=== PATIENT | female | born 1980 | race Caucasian/White ===

== ENCOUNTER 2019-10-05 13:11 | Emergency (ER) | payer BC ==
--- NOTE | 2019-10-05 14:13 | EDM.PDOC ---
ED HPI GENERAL MEDICAL PROBLEM - General Chief Complaint: Respiratory Problem Stated Complaint: FEVER/COUGHING Time Seen by Provider: 10/05/19 14:00 Source of Information: Reports: Patient History Limitations: Reports: No Limitations - History of Present Illness INITIAL COMMENTS - FREE TEXT/NARRATIVE: HISTORY AND PHYSICAL: History of present illness: Patient is a 39-year-old female who presents to the ED today with concern of intermittent fevers and cough over the last 4 to 5 days. Patient states that she has not been exposed to COVID-19 that she is aware of and has not traveled. Patient states that she has been at home and at work and does not live in a congregate setting. Patient states she also initially had some generalized body aches and diarrhea but this has improved over the last several days. Patient denies any health history or any other symptoms or concerns. Patient states she has not taken any medication today for her fever. Patient denies chest pain, shortness of breath. Denies headache, neck stiff ness , change in vision, syncope, or near syncope. Denies nausea, vomiting, abdominal pain, diarrhea, constipation, or dysuria. Has not noted any blood in urine or stool. Patient has been eating and drinking appropriately. Review of systems: As per history of present illness and below otherwise all systems reviewed and negative. Past medical history: As per history of present illness and as reviewed below otherwise noncontributory. Surgical history: As per history of present illness and as reviewed below otherwise noncontributory. Social history: See social history for further information Family history: As per history of present illness and as reviewed below otherwise noncontributory. Physical exam: General: Patient is alert, oriented, and in no acute distress. Patient sitting comfortably on exam table. HEENT: Atraumatic, normocephalic, pupils equal and reactive bilaterally, negative for conjunctival pallor or scleral icterus, mucous membranes moist, TMs normal bilaterally, throat clear, neck supple, nontender, trachea midline. No drooling or trismus noted. No meningeal signs. No hot potato voice noted. Lungs: Clear to auscultation, breath sounds equal bilaterally, chest nontender. Heart: S1S2, regular rate and rhythm without overt murmur Abdomen: Soft, nondistended, nontender. Negative for masses or hepatosplenomegaly. Negative for costovertebral tenderness. Pelvis: Stable nontender. Genitourinary: Deferred. Rectal: Deferred. Skin: Intact, warm, dry. No lesions or rashes noted. Extremities: Atraumatic, negative for cords or calf pain. Neurovascular unremarkable. Neuro: Awake, alert, oriented. Cranial nerves II through XII unremarkable. Cerebellum unremarkable. Motor and sensory unremarkable throughout. Exam nonfocal. Notes: Due to the current COVID-19 outbreak, there is limitation in the supplies needed to test for this. The supplies for the COVID-19 outbreak are the same for testing for influenza and therefore are reserving influenza testing for special cases. Being that patient's vitals are stable and reviewed by me and patient symptoms have been ongoing for 4 to 5 days and out of the window for treatment with Tamiflu, will not perform any testing at this time. Did instruct patient to stay home per the [facility] recommendations and return instructions provided. Voices understanding and is agreeable to plan of care. Denies any further questions or concerns at this time. Diagnostics: None Therapeutics: None Prescription: None Impression: Flu like symptoms Plan: 1. Stay at home until 72 hours (3 days) have passed since recovery (resolution of fever without medication use, and improvement of cough). 2. You can alternate ibuprofen and Tylenol as directed for pain and discomfort. 3. Follow-up with a primary care provider as discussed. Return to the ED as needed and as discussed. Definitive disposition and diagnosis as appropriate pending reevaluation and review of above. - Related Data Allergies Allergy/AdvReac Type Severity Reaction Status Date / Time aloe Allergy Hives Verified 10/05/19 13:39 Home Meds: Home Meds . 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: Endometrial Ablation, , Other (See Below) Other ATHLETIC GEAR CUSTODIAN History: Gestational Hypertension; Pre-diabetic, some sort of Uterus repair surgery Endocrine/Metabolic History: Reports: Diabetes, Type II Immunologic History: Reports: Other (See Below) Other Immunologic History: herpes - Infectious Disease History Infectious Disease History: Reports: Chicken Pox - Past Surgical History Female Surgical History: Reports: Tubal Ligation, Other (See Below) Social & Family History - Family History Family Medical History: Noncontributory Respiratory: Reports: Asthma - Tobacco Use Smoking Status *Q: Current Every Day Smoker Years of Tobacco use: 25 Packs/Tins Daily: 1 - Caffeine Use Caffeine Use: Reports: Coffee, Energy Drinks, Soda, Tea - Recreational Drug Use Recreational Drug Use: No ED ROS GENERAL - Review of Systems Review Of Systems: Comprehensive ROS is negative, except as noted in HPI. ED EXAM, GENERAL - Physical Exam Exam: See Below (see dictation) Course - Vital Signs Last Recorded V/S: Last Vital Signs Temp 97.4 F 10/05/19 13:39 Pulse 94 10/05/19 13:39 Resp 16 10/05/19 13:39 BP 139/92 H 10/05/19 13:39 Pulse Ox 98 10/05/19 13:39 Departure - Departure Time of Disposition: 14:07 Disposition: Home, Self-Care 01 Clinical Impression: Flu-like symptoms - Discharge Information Referrals: PCP,None [Primary Care Provider] - Additional Instructions: The following information is given to patients seen in the emergency department who are being discharged to home. This information is to outline your options for follow-up care. We provide all patients seen in our emergency department with a follow-up referral. The need for follow-up, as well as the timing and circumstances, are variable depending upon the specifics of your emergency department visit. If you don't have a primary care physician on staff, we will provide you with a referral. We always advise you to contact your personal physician following an emergency department visit to inform them of the circumstance of the visit and for follow-up with them and/or the need for any referrals to a consulting specialist. The emergency department will also refer you to a specialist when appropriate. This referral assures that you have the opportunity for follow-up care with a specialist. All of these measure are taken in an effort to provide you with optimal care, which includes your follow-up. Under all circumstances we always encourage you to contact your private physician who remains a resource for coordinating your care. When calling for follow-up care, please make the office aware that this follow-up is from your recent emergency room visit. If for any reason you are refused follow-up, please contact the [facility] Emergency Department at and asked to speak to the emergency department charge nurse. [facility] [address] [place] [address] [facility] [address] [place] [id number] 1. Stay at home until 72 hours (3 days) have passed since recovery (resolution of fever without medication use, and improvement of cough). 2. You can alternate ibuprofen and Tylenol as directed for pain and discomfort. 3. Follow-up with a primary care provider as discussed. Return to the ED as needed and as discussed. Sepsis Event Note - Evaluation Sepsis Screening Result: No Definite Risk - Focused Exam Vital Signs: Vital Signs Temp Pulse Resp BP Pulse Ox 10/05/19 13:39 97.4 F 94 16 139/92 H 98 Date Exam was Performed: 10/05/19 Time Exam was Performed: 14:07
[2019-10-05 14:33] VITALS: BP 134/75; PULSE 95
== END 2019-10-05 14:37 | disposition home or self-care (01) ==
LOC: MW.ED 13:11
DX: R50.9 Fever, unspecified (principal); R05 Cough; F17.210 Nicotine dependence, cigarettes, uncomplicated; Z88.8 Allergy status to other drugs, medicaments and biological substances
CPT/HCPCS: 99283

== ENCOUNTER 2020-09-03 18:20 | Emergency (ER) | payer BC ==
--- NOTE | 2020-09-03 18:26 | EDM.PDOC ---
ED HPI GENERAL MEDICAL PROBLEM - General Chief Complaint: Genitourinary Problem Stated Complaint: STD TEST Time Seen by Provider: 09/03/20 18:21 Source of Information: Reports: Patient History Limitations: Reports: No Limitations - History of Present Illness INITIAL COMMENTS - FREE TEXT/NARRATIVE: HISTORY AND PHYSICAL: History of present illness: Patient is a 40-year-old female who presents to the emergency room with concerns of exposure to gonorrhea. She states she was informed by her significant other that he tested positive for gonorrhea and suggested she get tested/treated. She currently offers no complaints or concerns. Denies any vaginal discharge, bleeding or pelvic/low back pain. Patient denies any fever, chills, headache, change in vision, syncope or near syncope. Denies any chest pain, back pain, shortness of breath or cough. Denies any abdominal pain, nausea, vomiting, diarrhea, constipation or dysuria. Has not noted any blood in urine or stool. Patient has been eating and drinking appropriately. Review of systems: As per history of present illness and below otherwise all systems reviewed and negative. Past medical history: As per history of present illness and as reviewed below otherwise noncontributory. Surgical history: As per history of present illness and as reviewed below otherwise noncontributory. Social history: See social history for further information Family history: As per history of present illness and as reviewed below otherwise noncontributory. Physical exam: General: Well developed and well nourished. Alert and orientated x 3. Nontoxic in appearance and in no acute distress. Vital signs are stable and have been reviewed by me. Nursing notes were reviewed. HEENT: Atraumatic, normocephalic, pupils equal and reactive bilaterally, negative for conjunctival pallor or scleral icterus, mucous membranes moist, trachea midline. No drooling or trismus noted. No meningeal signs. No hot potato voice noted. Lungs: Clear to auscultation bilaterally. No wheezes, rales, or rhonchi. Chest nontender. Normal work of breathing, no accessory muscles used. Heart: S1S2, regular rate and rhythm without overt murmur, gallops, or rubs. No JVD. No peripheral edema Abdomen: Soft, nondistended, nontender. Normoactive bowel sounds. Negative for masses or costovertebral tenderness. Skin: Intact, warm, dry. No lesions or rashes noted. Hematologic: No petechiae or purpra. Mucosa appropriate color and normal nail bed color and refill. Extremities: Atraumatic, moves all extremities per self without difficulty or deficits. Neurovascular unremarkable. Neuro: Awake, alert, oriented. Cranial nerves II through XII unremarkable. Cerebellum unremarkable. Motor and sensory unremarkable throughout. Exam nonfocal. Psychiatric: Mood and affect are appropriate. Normal thought process. Answering questions appropriately. Notes: *This patient was seen and evaluated during the 2019 SARS-CoV-2 novel coronavirus pandemic period. Community viral transmission is ongoing at time of this encounter and the emergency department is operating under pandemic response procedures. I have talked with the patient about today's findings, in addition to providing specific details for plan of care. Reassessment at the time of disposition demonstrates that the patient is in no acute distress. The patient is stable for discharge, counseling was provided and we discussed in great detail signs and symptoms that would prompt them to return to the Emergency Department. Medication, follow up and supportive care measures were reviewed and discussed. Voices understanding and is agreeable to plan of care. Denies any further questions or concerns at this time. Diagnostics: UA, HCGU, David/Chlam Therapeutics: Rocephin Prescription: Doxycycline Impression: STD exposure Plan: 1. Please abstain from sexual intercourse until you have completed the 7 day course of antibiotic. Always use protection to minimized risk of STD exposure 2. Take the medications as directed. The gonorrhea and chlamydia tests are send out labs, therefore will not be available for 2-3 business days. 3. Please follow-up with your primary care provider in the next 1-2 days. [facility] does offer free STD testing, please follow-up with them for further STD testing needs. Return to the ED as needed and as discussed. Definitive disposition and diagnosis as appropriate pending reevaluation and review of above. - Related Data Allergies Allergy/AdvReac Type Severity Reaction Status Date / Time aloe Allergy Hives Verified 09/03/20 19:12 Home Meds: Home Meds . 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: Endometrial Ablation, , Other (See Below) Other BAG GRADER History: Gestational Hypertension; Pre-diabetic, some sort of Uterus repair surgery Endocrine/Metabolic History: Reports: Diabetes, Type II Immunologic History: Reports: Other (See Below) Other Immunologic History: herpes - Infectious Disease History Infectious Disease History: Reports: Chicken Pox - Past Surgical History Female Surgical History: Reports: Tubal Ligation, Other (See Below) Social & Family History - Family History Family Medical History: No Pertinent Family History Respiratory: Reports: Asthma - Caffeine Use Caffeine Use: Reports: Coffee, Energy Drinks, Soda, Tea ED ROS GENERAL - Review of Systems Review Of Systems: Comprehensive ROS is negative, except as noted in HPI. ED EXAM, RENAL/ - Physical Exam Exam: See Below (See dictation) Course - Vital Signs Last Recorded V/S: Last Vital Signs Temp 98.2 F 09/03/20 19:12 Pulse 102 H 09/03/20 19:12 Resp 18 09/03/20 19:12 BP 128/92 H 09/03/20 19:12 Pulse Ox 98 09/03/20 19:12 - Orders/Labs/Meds Orders: Active Orders 24 hr Category Date Time Status CHLAMYDIA AND GONORRHEA BY TMA Stat Lab 09/03/20 18:33 Received CULTURE URINE [RM] Stat Lab 09/03/20 18:33 Received cefTRIAXone [Rocephin] 500 mg Med 09/03/20 19:15 Ordered Lidocaine 1% [Xylocaine-MPF 1%] 2 ml IM ONETIME Labs: Laboratory Tests 09/03/20 09/03/20 Range/Units 18:33 18:33 Urine Color YELLOW Urine Appearance CLEAR Urine pH 5.5 (5.0-8.0) Ur Specific Union >= 1.030 (1.001-1.035) Urine Protein 100 H (NEGATIVE) mg/dL Urine Glucose (UA) NEGATIVE (NEGATIVE) mg/dL Urine Ketones TRACE H (NEGATIVE) mg/dL Urine Occult Blood NEGATIVE (NEGATIVE) Urine Nitrite POSITIVE H (NEGATIVE) Urine Bilirubin SMALL H (NEGATIVE) Urine Ictotest NEGATIVE Urine Urobilinogen 1.0 (<2.0) EU/dL Ur Leukocyte Esterase SMALL H (NEGATIVE) Urine RBC 0-1 (0-2/HPF) Urine WBC 0-3 (0-5/HPF) Ur Epithelial Cells FEW (NONE-FEW) Urine Bacteria 1+ H (NEGATIVE) Urine Mucus LIGHT (NONE-MOD) Urine HCG, Qual NEGATIVE (NEGATIVE) Departure - Departure Time of Disposition: 19:18 Disposition: Home, Self-Care 01 Clinical Impression: STD exposure - Discharge Information Instructions: Sexually Transmitted Disease, [id number] Referrals: PCP,None [Primary Care Provider] - Forms: ED Department Discharge Additional Instructions: The following information is given to patients seen in the emergency department who are being discharged to home. This information is to outline your options for follow-up care. We provide all patients seen in our emergency department with a follow-up referral. The need for follow-up, as well as the timing and circumstances, are variable depending upon the specifics of your emergency department visit. If you don't have a primary care physician on staff, we will provide you with a referral. We always advise you to contact your personal physician following an emergency department visit to inform them of the circumstance of the visit and for follow-up with them and/or the need for any referrals to a consulting specialist. The emergency department will also refer you to a specialist when appropriate. This referral assures that you have the opportunity for follow-up care with a specialist. All of these measure are taken in an effort to provide you with optimal care, which includes your follow-up. Under all circumstances we always encourage you to contact your private physician who remains a resource for coordinating your care. When calling for follow-up care, please make the office aware that this follow-up is from your recent emergency room visit. If for any reason you are refused follow-up, please contact the [facility] Emergency Department at and asked to speak to the emergency department charge nurse. [facility] [address] [place] [address] [id number] [address] [id number] Thank you for choosing the [facility] emergency department in [facility] for your medical needs today. It was a pleasure caring for you. Today you were seen in the emergency department for STD screening. 1. Please abstain from sexual intercourse until you have completed the 7 day course of antibiotic. Always use protection to minimized risk of STD exposure 2. Take the medications as directed. The gonorrhea and chlamydia tests are send out labs, therefore will not be available for 2-3 business days. 3. Please follow-up with your primary care provider in the next 1-2 days. [facility] does offer free STD testing, please follow-up with them for further STD testing needs. Return to the ED as needed and as discussed. Sepsis Event Note (ED) - Focused Exam Vital Signs: Vital Signs Temp Pulse Resp BP Pulse Ox 09/03/20 19:12 98.2 F 102 H 18 128/92 H 98 - My Orders Last 24 Hours: My Active Orders 09/03/20 18:33 CHLAMYDIA AND GONORRHEA BY TMA Stat CULTURE URINE [RM] Stat 09/03/20 19:15 cefTRIAXone [Rocephin] 500 mg Lidocaine 1% [Xylocaine-MPF 1%] 2 ml IM ONETIME - Assessment/Plan Last 24 Hours: My Active Orders 09/03/20 18:33 CHLAMYDIA AND GONORRHEA BY TMA Stat CULTURE URINE [RM] Stat 09/03/20 19:15 cefTRIAXone [Rocephin] 500 mg Lidocaine 1% [Xylocaine-MPF 1%] 2 ml IM ONETIME
[2020-09-03] MEDS ORDERED: cefTRIAXone 500 MG in Lidocaine 1% 2 ML IM ONE (19:15)
[2020-09-03 19:48] VITALS: BP 142/91; PULSE 96
[2020-09-05 13:08] LABS: C.TRACHOMATIS BY TMA Negative (Negative); N.GONORRHOEAE BY TMA Positive (Negative)
== END 2020-09-03 19:38 | disposition home or self-care (01) ==
LOC: MW.ED 18:20
DX: N39.0 Urinary tract infection, site not specified (principal); E11.9 Type 2 diabetes mellitus without complications; Z20.2 Contact with and (suspected) exposure to infections with a predominantly sexual mode of transmission; Z91.048 Other nonmedicinal substance allergy status
CPT/HCPCS: 81001; 81025; 87086; 87491; 87591; 96372; 99283; J0696